=== PATIENT | male | born 1960 | race Two or more races ===

== ENCOUNTER 2017-09-08 13:07 | Emergency (ER) | payer OTHER ==
[~2017-09-08] VITALS: Ht 175.3 cm; Wt 86.2 kg
[~2017-09-08 13:07] MED LIST: METFORMIN HCL500 MG; TUSSI PRES-B L120 M1 PO; ZITHROMAX TRI-500 MG PO
[2017-09-08] MEDS ORDERED: ATORVASTATIN CA10 MG (13:39)
== END 2017-09-08 17:18 | disposition home or self-care (01) ==
LOC: ER 13:07
DX: R00.2 Palpitations (principal)

== ENCOUNTER → 2017-10-12 07:03 | Outpatient (CLI) | payer OTHER ==
[~2017-10-12 07:03] MED LIST changes: +ATORVASTATIN CA10 MG
== END | disposition home or self-care (01) ==
LOC: LAB 07:03
DX: I11.9 Hypertensive heart disease without heart failure (principal); E11.9 Type 2 diabetes mellitus without complications; E78.2 Mixed hyperlipidemia; E03.9 Hypothyroidism, unspecified; N39.0 Urinary tract infection, site not specified; C18.9 Malignant neoplasm of colon, unspecified

== ENCOUNTER 2017-10-13 07:12 | Outpatient (CLI) | payer OTHER | END 2017-10-13 08:21 | disposition home or self-care (01) | LOC: LAB 07:12 | DX: C18.9 Malignant neoplasm of colon, unspecified (principal) ==

== ENCOUNTER 2018-01-11 12:37 | Emergency (ER) | payer OTHER ==
[~2018-01-11] VITALS: Ht 175.3 cm; Wt 86.2 kg
[2018-01-11] MEDS ORDERED: VITAMIN B122500 MCG (12:47)
[2018-01-11] MEDS ORDERED: VITAMIN D31000 UNIT (12:48)
== END 2018-01-11 15:34 | disposition home or self-care (01) ==
LOC: ER 12:37
DX: R00.2 Palpitations (principal); F06.4 Anxiety disorder due to known physiological condition

== ENCOUNTER 2018-02-22 08:21 | Outpatient (CLI) | payer OTHER ==
[~2018-02-22 08:21] MED LIST changes: +VITAMIN B122500 MCG; +VITAMIN D31000 UNIT
== END 2018-02-22 14:44 | disposition home or self-care (01) ==
LOC: LAB 08:21
DX: D50.8 Other iron deficiency anemias (principal); E03.8 Other specified hypothyroidism; E78.2 Mixed hyperlipidemia; I11.9 Hypertensive heart disease without heart failure; E56.8 Deficiency of other vitamins; N39.0 Urinary tract infection, site not specified; Z12.11 Encounter for screening for malignant neoplasm of colon; R19.5 Other fecal abnormalities; E55.9 Vitamin D deficiency, unspecified; N19 Unspecified kidney failure; E11.9 Type 2 diabetes mellitus without complications; R80.9 Proteinuria, unspecified; K92.1 Melena; C18.9 Malignant neoplasm of colon, unspecified

== ENCOUNTER 2018-09-06 15:13 | Emergency (ER) | payer OTHER ==
[~2018-09-06] VITALS: Ht 175.3 cm; Wt 88.0 kg
== END 2018-09-06 18:30 | disposition home or self-care (01) ==
LOC: ER 15:13
DX: G44.209 Tension-type headache, unspecified, not intractable (principal)

== ENCOUNTER 2018-09-16 08:06 | Outpatient (CLI) | payer OTHER | END 2018-09-16 08:10 | disposition home or self-care (01) | LOC: LAB 08:06 | DX: D50.8 Other iron deficiency anemias (principal); E03.8 Other specified hypothyroidism; E78.2 Mixed hyperlipidemia; I11.9 Hypertensive heart disease without heart failure; E56.8 Deficiency of other vitamins; N39.0 Urinary tract infection, site not specified; Z12.11 Encounter for screening for malignant neoplasm of colon; E55.9 Vitamin D deficiency, unspecified; N19 Unspecified kidney failure; E11.9 Type 2 diabetes mellitus without complications; R80.8 Other proteinuria; C18.0 Malignant neoplasm of cecum; K92.1 Melena; E53.8 Deficiency of other specified B group vitamins ==

== ENCOUNTER 2018-09-17 10:39 | Outpatient (CLI) | payer OTHER | END 2018-09-17 13:01 | disposition home or self-care (01) | LOC: LAB 10:39 | DX: D50.8 Other iron deficiency anemias (principal); E03.8 Other specified hypothyroidism; E78.2 Mixed hyperlipidemia; I11.9 Hypertensive heart disease without heart failure; E56.8 Deficiency of other vitamins; N39.0 Urinary tract infection, site not specified; Z12.11 Encounter for screening for malignant neoplasm of colon; E55.9 Vitamin D deficiency, unspecified; N19 Unspecified kidney failure; E11.9 Type 2 diabetes mellitus without complications; R80.8 Other proteinuria; C18.0 Malignant neoplasm of cecum; K92.1 Melena; E53.8 Deficiency of other specified B group vitamins ==

== ENCOUNTER 2019-02-13 08:09 | Outpatient (CLI) | payer OTHER | END 2019-02-13 08:17 | disposition home or self-care (01) | LOC: LAB 08:09 | DX: D50.8 Other iron deficiency anemias (principal); E03.8 Other specified hypothyroidism; E78.2 Mixed hyperlipidemia; I11.9 Hypertensive heart disease without heart failure; E56.8 Deficiency of other vitamins; N39.0 Urinary tract infection, site not specified; Z12.11 Encounter for screening for malignant neoplasm of colon; E55.9 Vitamin D deficiency, unspecified; R80.8 Other proteinuria; C18.0 Malignant neoplasm of cecum; K92.1 Melena; E11.9 Type 2 diabetes mellitus without complications; N17.8 Other acute kidney failure ==

== ENCOUNTER → 2019-08-01 07:01 | Outpatient (CLI) | payer OTHER | END | disposition home or self-care (01) | LOC: LAB 07:01 | DX: D50.8 Other iron deficiency anemias (principal); E03.8 Other specified hypothyroidism; E78.2 Mixed hyperlipidemia; I11.9 Hypertensive heart disease without heart failure; E56.8 Deficiency of other vitamins; N39.0 Urinary tract infection, site not specified; Z12.11 Encounter for screening for malignant neoplasm of colon; E55.9 Vitamin D deficiency, unspecified; N19 Unspecified kidney failure; E11.9 Type 2 diabetes mellitus without complications; R80.8 Other proteinuria; C18.0 Malignant neoplasm of cecum; K92.1 Melena ==

== ENCOUNTER 2019-08-05 09:26 | Outpatient (CLI) | payer OTHER | END 2019-08-05 09:33 | disposition home or self-care (01) | LOC: LAB 09:26 | DX: D50.8 Other iron deficiency anemias (principal); E03.8 Other specified hypothyroidism; E78.2 Mixed hyperlipidemia; I11.9 Hypertensive heart disease without heart failure; E56.8 Deficiency of other vitamins; N39.0 Urinary tract infection, site not specified; Z12.11 Encounter for screening for malignant neoplasm of colon; E55.9 Vitamin D deficiency, unspecified; N19 Unspecified kidney failure; E11.9 Type 2 diabetes mellitus without complications; R80.8 Other proteinuria; C18.0 Malignant neoplasm of cecum; K92.1 Melena ==

== ENCOUNTER → 2019-11-17 10:44 | Outpatient (CLI) | payer OTHER | END | disposition home or self-care (01) | LOC: LAB 10:44 | DX: D50.8 Other iron deficiency anemias (principal); E03.8 Other specified hypothyroidism; E78.2 Mixed hyperlipidemia; I11.9 Hypertensive heart disease without heart failure; E56.8 Deficiency of other vitamins; N39.0 Urinary tract infection, site not specified; Z12.11 Encounter for screening for malignant neoplasm of colon; E55.9 Vitamin D deficiency, unspecified; N19 Unspecified kidney failure; E11.9 Type 2 diabetes mellitus without complications; R80.8 Other proteinuria; C18.0 Malignant neoplasm of cecum; K92.1 Melena ==

== ENCOUNTER 2020-03-11 07:21 | Outpatient (CLI) | payer OTHER | END 2020-03-11 07:40 | disposition home or self-care (01) | LOC: LAB 07:21 | PROVIDERS: ATTEND Internal Medicine Geriatric Medicine | DX: D50.8 Other iron deficiency anemias (principal); E03.8 Other specified hypothyroidism; E78.2 Mixed hyperlipidemia; I11.9 Hypertensive heart disease without heart failure; E56.8 Deficiency of other vitamins; N39.0 Urinary tract infection, site not specified; Z12.11 Encounter for screening for malignant neoplasm of colon; E55.9 Vitamin D deficiency, unspecified; N19 Unspecified kidney failure; E11.9 Type 2 diabetes mellitus without complications; R80.8 Other proteinuria; C18.0 Malignant neoplasm of cecum; K92.1 Melena ==

== ENCOUNTER 2020-03-12 08:30 | Outpatient (CLI) | payer OTHER | END 2020-03-12 08:34 | disposition home or self-care (01) | LOC: LAB 08:30 | PROVIDERS: ATTEND Internal Medicine Geriatric Medicine | DX: D50.8 Other iron deficiency anemias (principal); E03.8 Other specified hypothyroidism; E78.2 Mixed hyperlipidemia; I11.9 Hypertensive heart disease without heart failure; E56.8 Deficiency of other vitamins; N39.0 Urinary tract infection, site not specified; Z12.11 Encounter for screening for malignant neoplasm of colon; E55.9 Vitamin D deficiency, unspecified; N19 Unspecified kidney failure; E11.9 Type 2 diabetes mellitus without complications; R80.8 Other proteinuria; C18.0 Malignant neoplasm of cecum; K92.1 Melena ==

== ENCOUNTER 2020-10-27 10:02 | Outpatient (CLI) | payer OTHER | END 2020-10-27 10:09 | disposition home or self-care (01) | LOC: LAB 10:02 | PROVIDERS: ATTEND Internal Medicine Geriatric Medicine | DX: D50.8 Other iron deficiency anemias (principal); E03.8 Other specified hypothyroidism; E78.2 Mixed hyperlipidemia; I11.9 Hypertensive heart disease without heart failure; E56.8 Deficiency of other vitamins; N39.0 Urinary tract infection, site not specified; Z12.11 Encounter for screening for malignant neoplasm of colon; R19.5 Other fecal abnormalities; E55.9 Vitamin D deficiency, unspecified; N19 Unspecified kidney failure; E11.9 Type 2 diabetes mellitus without complications; R80.8 Other proteinuria; C18.8 Malignant neoplasm of overlapping sites of colon; K92.1 Melena ==

== ENCOUNTER → 2021-04-07 09:41 | Outpatient (CLI) | payer OTHER | END | disposition home or self-care (01) | LOC: LAB 09:41 | PROVIDERS: ATTEND Internal Medicine Geriatric Medicine | DX: D50.8 Other iron deficiency anemias (principal); E03.8 Other specified hypothyroidism; E78.2 Mixed hyperlipidemia; I11.9 Hypertensive heart disease without heart failure; E56.8 Deficiency of other vitamins; N39.0 Urinary tract infection, site not specified; Z12.11 Encounter for screening for malignant neoplasm of colon; R19.5 Other fecal abnormalities; E55.9 Vitamin D deficiency, unspecified; N19 Unspecified kidney failure; E11.9 Type 2 diabetes mellitus without complications ==

== ENCOUNTER 2021-08-07 13:11 | Emergency (ER) | payer OTHER ==
[~2021-08-07] VITALS: Ht 175.3 cm; Wt 86.2 kg
[2021-08-07] MEDS ORDERED: ALTACE1.25 MG PO (13:21)
[2021-08-07] MEDS ORDERED: HYDROXYZINE HCL50 MG PO (15:23)
== END 2021-08-07 16:01 | disposition home or self-care (01) ==
LOC: ER 13:11
DX: F41.8 Other specified anxiety disorders (principal); E11.9 Type 2 diabetes mellitus without complications; Z79.84 Long term (current) use of oral hypoglycemic drugs; I10 Essential (primary) hypertension

== ENCOUNTER → 2021-08-24 11:15 | Outpatient (CLI) | payer OTHER ==
[~2021-08-24 11:15] MED LIST changes: +ALTACE1.25 MG PO; +HYDROXYZINE HCL50 MG PO
== END | disposition home or self-care (01) ==
LOC: LAB 11:15
PROVIDERS: ATTEND Internal Medicine Geriatric Medicine
DX: D50.9 Iron deficiency anemia, unspecified (principal); E03.9 Hypothyroidism, unspecified; E78.2 Mixed hyperlipidemia; I11.9 Hypertensive heart disease without heart failure; E56.8 Deficiency of other vitamins; N39.0 Urinary tract infection, site not specified; Z12.11 Encounter for screening for malignant neoplasm of colon; R19.5 Other fecal abnormalities; E55.9 Vitamin D deficiency, unspecified; E11.9 Type 2 diabetes mellitus without complications

== ENCOUNTER 2021-09-07 08:00 | Outpatient (CLI) | payer OTHER | END 2021-09-07 08:30 | disposition home or self-care (01) | LOC: PPH VACUNA 08:00 | PROVIDERS: ATTEND Emergency Medicine Pediatric Emergency Medicine | DX: Z23 Encounter for immunization (principal) ==

== ENCOUNTER 2021-10-20 08:13 | Outpatient (CLI) | payer OTHER | END 2021-10-20 09:24 | disposition home or self-care (01) | LOC: SONOGRAMA 08:13 | PROVIDERS: ATTEND Internal Medicine Gastroenterology | DX: R74.01 Elevation of levels of liver transaminase levels (principal) ==

== ENCOUNTER 2021-11-29 10:21 | Outpatient (CLI) | payer OTHER | END 2021-11-29 10:30 | disposition home or self-care (01) | LOC: LAB 10:21 | PROVIDERS: ATTEND Internal Medicine Gastroenterology | DX: K57.31 Diverticulosis of large intestine without perforation or abscess with bleeding (principal); R74.01 Elevation of levels of liver transaminase levels; Z86.010 Personal history of colon polyps ==

== ENCOUNTER 2022-01-04 07:16 | Outpatient (CLI) | payer OTHER | END 2022-01-04 07:17 | disposition home or self-care (01) | LOC: MRI 07:16 | PROVIDERS: ATTEND Orthopaedic Surgery | DX: S83.212A Bucket-handle tear of medial meniscus, current injury, left knee, initial encounter (principal) | CPT/HCPCS: 73718 ==

== ENCOUNTER 2022-01-19 07:15 | Outpatient (CLI) | payer OTHER | END 2022-01-19 15:09 | disposition home or self-care (01) | LOC: LAB 07:15 | PROVIDERS: ATTEND Internal Medicine Geriatric Medicine | DX: D50.9 Iron deficiency anemia, unspecified (principal); E03.9 Hypothyroidism, unspecified; E78.2 Mixed hyperlipidemia; I11.9 Hypertensive heart disease without heart failure; E56.8 Deficiency of other vitamins; N39.0 Urinary tract infection, site not specified; Z12.11 Encounter for screening for malignant neoplasm of colon; R19.5 Other fecal abnormalities; E55.9 Vitamin D deficiency, unspecified; N19 Unspecified kidney failure; E11.9 Type 2 diabetes mellitus without complications ==

== ENCOUNTER → 2022-07-08 10:32 | Outpatient (CLI) | payer OTHER | END | disposition home or self-care (01) | LOC: LAB 10:32 | PROVIDERS: ATTEND Internal Medicine Gastroenterology | DX: R74.01 Elevation of levels of liver transaminase levels (principal); K57.31 Diverticulosis of large intestine without perforation or abscess with bleeding; Z86.010 Personal history of colon polyps; Z11.52 Encounter for screening for COVID-19; Z20.822 Contact with and (suspected) exposure to COVID-19; Z20.828 Contact with and (suspected) exposure to other viral communicable diseases ==

== ENCOUNTER → 2022-08-01 10:22 | Outpatient (CLI) | payer OTHER | END | disposition home or self-care (01) | LOC: LAB 10:22 | PROVIDERS: ATTEND Internal Medicine Geriatric Medicine | DX: D50.9 Iron deficiency anemia, unspecified (principal); E03.9 Hypothyroidism, unspecified; E78.2 Mixed hyperlipidemia; I11.9 Hypertensive heart disease without heart failure; E56.8 Deficiency of other vitamins; N39.0 Urinary tract infection, site not specified; Z12.11 Encounter for screening for malignant neoplasm of colon; R19.5 Other fecal abnormalities; E55.9 Vitamin D deficiency, unspecified; N19 Unspecified kidney failure; E11.9 Type 2 diabetes mellitus without complications ==

== ENCOUNTER → 2022-09-14 09:32 | Outpatient (CLI) | payer OTHER | END | disposition home or self-care (01) | LOC: LAB 09:32 | PROVIDERS: ATTEND Specialist | DX: N39.0 Urinary tract infection, site not specified (principal); N20.0 Calculus of kidney; N40.0 Benign prostatic hyperplasia without lower urinary tract symptoms ==

== ENCOUNTER 2022-11-17 07:02 | Outpatient (CLI) | payer OTHER | END 2022-11-17 07:03 | disposition home or self-care (01) | LOC: LAB 07:02 | PROVIDERS: ATTEND Internal Medicine Geriatric Medicine | DX: R74.01 Elevation of levels of liver transaminase levels (principal) ==

== ENCOUNTER → 2022-11-17 | Outpatient (CLI) | payer OTHER | END | disposition home or self-care (01) | LOC: SONOGRAMA 07:36 | PROVIDERS: ATTEND Internal Medicine Geriatric Medicine | DX: R74.01 Elevation of levels of liver transaminase levels (principal) ==

== ENCOUNTER 2023-01-08 07:16 | Outpatient (CLI) | payer OTHER | END 2023-01-08 07:18 | disposition home or self-care (01) | LOC: LAB 07:16 | PROVIDERS: ATTEND Internal Medicine Geriatric Medicine | DX: D50.9 Iron deficiency anemia, unspecified (principal); E03.9 Hypothyroidism, unspecified; E78.2 Mixed hyperlipidemia; I11.9 Hypertensive heart disease without heart failure; E56.8 Deficiency of other vitamins; N39.0 Urinary tract infection, site not specified; Z12.11 Encounter for screening for malignant neoplasm of colon; R19.5 Other fecal abnormalities; E55.9 Vitamin D deficiency, unspecified; N19 Unspecified kidney failure; E11.9 Type 2 diabetes mellitus without complications ==

== ENCOUNTER → 2023-04-30 10:48 | Outpatient (CLI) | payer OTHER ==
[2023-04-30 12:55] LABS: HEMATOCRIT 43.1 % (39.0-48.0); HEMOGLOBIN 14.9 g/dL (13-16.00); MEAN CELL VOLUME 95.8 fL (80.0-100.00); MEAN CORPUSCULAR HGB CONC 34.4 g/dl (32.0-36.0); PLATELET COUNT 257 K/uL (150-450)
[2023-04-30 13:50] LABS: ALBUMIN 3.6 gm/dL (3.4-5.0); BILIRUBIN TOTAL 0.72 mg/dL (0.3-1.2); CHOL HDL RATIO 2.2 (0-5.0); CREATININE SERUM 0.8 mg/dL (0.70-1.30); GFR 97.95; GLOBULINA 4.1 G/DL (2.4-3.5); POTASSIUM 4.77 mEq/L (3.5-5.1); TOTAL PROTEIN 7.7 gm/dL (6.4-8.2)
== END | disposition home or self-care (01) ==
LOC: LAB 10:48
PROVIDERS: ATTEND Internal Medicine Cardiovascular Disease
DX: I11.9 Hypertensive heart disease without heart failure (principal); E11.9 Type 2 diabetes mellitus without complications; E78.2 Mixed hyperlipidemia

== ENCOUNTER → 2023-07-19 09:10 | Outpatient (CLI) | payer OTHER ==
[2023-07-19 10:11] LABS: HEMATOCRIT 42.3 % (39.0-48.0); HEMOGLOBIN 14.5 g/dL (13-16.00); MEAN CELL VOLUME 95.2 fL (80.0-100.00); MEAN CORPUSCULAR HEMOGLOBIN 32.6 pg (27.00-32.0); MEAN CORPUSCULAR HGB CONC 34.2 g/dl (32.0-36.0); PLATELET COUNT 267 K/uL (150-450); RED BLOOD COUNT 4.44 M/uL (4.00-6.00); RED CELL DISTRIBUTION WIDTH 13.4 % (11.5-14.5)
[2023-07-19 10:26] LABS: PH,URINE 5.5 (5.0-8.0); URINE APPEARANCE Clear; URINE BILIRRUBIN Negative (NEGATIVE); URINE BLOOD Negative; URINE COLOR Yellow; URINE GLUCOSE Negative (NEGATIVE); URINE LEUKOCYTE Negative; URINE NITRATE Negative; URINE PROTEIN Negative (NEGATIVE); URINE UROBILINOGEN 0.2 E.U./dl
[2023-07-19 10:32] LABS: URINE RBC 3.3 uL (0.0-20.8); URINE WBC 1.8 uL (0.0-23.2)
[2023-07-19 10:37] LABS: URINE EPITHELIAL CELLS 0.6 uL (0.0-38.8)
[2023-07-19 10:56] LABS: ALBUMIN 3.7 gm/dL (3.4-5.0); BILIRUBIN TOTAL 0.5 mg/dL (0.3-1.2); CALCIUM 9.3 mg/dL (8.5-10.1); CHOL HDL RATIO 2.3 (0-5.0); CREATININE SERUM 0.82 mg/dL (0.70-1.30); GFR 95.2; GLOBULINA 3.9 G/DL (2.4-3.5); POTASSIUM 5.35 mEq/L (3.5-5.1); TOTAL PROTEIN 7.6 gm/dL (6.4-8.2); TSH 1.05 uIU/mL (0.358-3.74)
== END | disposition home or self-care (01) ==
LOC: LAB 09:10
PROVIDERS: ATTEND Internal Medicine Geriatric Medicine
DX: D50.9 Iron deficiency anemia, unspecified (principal); E03.9 Hypothyroidism, unspecified; E78.2 Mixed hyperlipidemia; I11.9 Hypertensive heart disease without heart failure; E56.8 Deficiency of other vitamins; N39.0 Urinary tract infection, site not specified; Z12.11 Encounter for screening for malignant neoplasm of colon; R19.5 Other fecal abnormalities; E55.9 Vitamin D deficiency, unspecified; N19 Unspecified kidney failure; E11.9 Type 2 diabetes mellitus without complications

== ENCOUNTER 2023-09-07 10:56 | Emergency (ER) | payer OTHER ==
[~2023-09-07] VITALS: Ht 175.3 cm; Wt 89.8 kg
[2023-09-07] MEDS ORDERED: levoFLOXacin IN DEXTROSE 5 % 5 MG/ML PIGGYBAG IV STA (12:43)
[2023-09-07] MEDS ORDERED: KETOROLAC TROMETHAMINE 15 MG VIAL IV STA (12:43)
== END 2023-09-07 14:46 | disposition home or self-care (01) ==
LOC: ER 10:57
DX: S80.211A Abrasion, right knee, initial encounter (principal); X58.XXXA Exposure to other specified factors, initial encounter; Y93.89 Activity, other specified; Y92.89 Other specified places as the place of occurrence of the external cause; Y99.8 Other external cause status; L03.90 Cellulitis, unspecified; L08.9 Local infection of the skin and subcutaneous tissue, unspecified

== ENCOUNTER 2023-10-16 09:03 | Outpatient (CLI) | payer OTHER ==
[2023-10-16 09:43] LABS: HEMATOCRIT 43.7 % (39.0-48.0); MEAN CELL VOLUME 96.5 fL (80.0-100.00); MEAN CORPUSCULAR HGB CONC 34.2 g/dl (32.0-36.0); PLATELET COUNT 226 K/uL (150-450); RED BLOOD COUNT 4.53 M/uL (4.00-6.00); RED CELL DISTRIBUTION WIDTH 12.9 % (11.5-14.5)
[2023-10-16 09:50] LABS: PH,URINE 5.5 (5.0-8.0); URINE APPEARANCE Clear; URINE BILIRRUBIN Negative (NEGATIVE); URINE BLOOD Trace; URINE COLOR Yellow; URINE GLUCOSE Negative (NEGATIVE); URINE LEUKOCYTE Negative; URINE NITRATE Negative; URINE PROTEIN Negative (NEGATIVE); URINE UROBILINOGEN 0.2 E.U./dl
[2023-10-16 09:54] LABS: URINE RBC 7.7 uL (0.0-20.8)
[2023-10-16 10:06] LABS: URINE EPITHELIAL CELLS 0.6 uL (0.0-38.8); URINE WBC 1.2 uL (0.0-23.2)
[2023-10-16 10:19] LABS: ALBUMIN 3.8 gm/dL (3.4-5.0); BILIRUBIN TOTAL 0.66 mg/dL (0.3-1.2); CALCIUM 9.4 mg/dL (8.5-10.1); CHOL HDL RATIO 2.3 (0-5.0); CREATININE SERUM 0.85 mg/dL (0.70-1.30); GFR 91.33; POTASSIUM 5.37 mEq/L (3.5-5.1); TOTAL PROTEIN 7.8 gm/dL (6.4-8.2); TSH 1.46 uIU/mL (0.358-3.74)
== END 2023-10-16 09:12 | disposition home or self-care (01) ==
LOC: LAB 09:03
PROVIDERS: ATTEND Internal Medicine Cardiovascular Disease
DX: R00.2 Palpitations (principal); I11.9 Hypertensive heart disease without heart failure; E11.9 Type 2 diabetes mellitus without complications; E78.2 Mixed hyperlipidemia

== ENCOUNTER 2024-01-31 11:44 | Outpatient (CLI) | payer OTHER ==
[2024-01-31 12:29] LABS: HEMATOCRIT 43.9 % (39.0-48.0); HEMOGLOBIN 14.9 g/dL (13-16.00); MEAN CELL VOLUME 96.6 fL (80.0-100.00); MEAN CORPUSCULAR HEMOGLOBIN 32.8 pg (27.00-32.0); PLATELET COUNT 231 K/uL (150-450); RED BLOOD COUNT 4.54 M/uL (4.00-6.00); RED CELL DISTRIBUTION WIDTH 13.2 % (11.5-14.5)
[2024-01-31 12:35] LABS: URINE APPEARANCE Clear; URINE BILIRRUBIN Negative (NEGATIVE); URINE BLOOD Trace; URINE COLOR Yellow; URINE GLUCOSE Negative (NEGATIVE); URINE KETONE Negative (NEGATIVE); URINE LEUKOCYTE Negative; URINE NITRATE Negative; URINE PROTEIN Negative (NEGATIVE); URINE UROBILINOGEN 0.2 E.U./dl
[2024-01-31 12:36] LABS: URINE BACTERIA 6.2 uL (0.0-1933); URINE RBC 5.8 uL (0.0-20.8); URINE WBC 2.9 uL (0.0-23.2)
[2024-01-31 13:30] LABS: ALBUMIN 3.9 gm/dL (3.4-5.0); BILIRUBIN TOTAL 0.55 mg/dL (0.3-1.2); CALCIUM 9.2 mg/dL (8.5-10.1); CHOL HDL RATIO 2.4 (0-5.0); CREATININE SERUM 0.86 mg/dL (0.70-1.30); GFR 90.11; POTASSIUM 4.67 mEq/L (3.5-5.1); TOTAL PROTEIN 7.9 gm/dL (6.4-8.2); TSH 1.26 uIU/mL (0.358-3.74)
[2024-02-01 13:28] LABS: ob POSITIVE (NEGATIVE)
== END 2024-01-31 11:45 | disposition home or self-care (01) ==
LOC: LAB 11:44
PROVIDERS: ATTEND Internal Medicine Geriatric Medicine
DX: D50.9 Iron deficiency anemia, unspecified (principal); E03.9 Hypothyroidism, unspecified; E78.2 Mixed hyperlipidemia; I11.9 Hypertensive heart disease without heart failure; E56.8 Deficiency of other vitamins; N39.0 Urinary tract infection, site not specified; Z12.11 Encounter for screening for malignant neoplasm of colon; R19.5 Other fecal abnormalities; E55.9 Vitamin D deficiency, unspecified; N19 Unspecified kidney failure; E11.9 Type 2 diabetes mellitus without complications

== ENCOUNTER 2024-02-25 11:47 | Emergency (ER) | payer OTHER ==
[~2024-02-25] VITALS: Ht 175.3 cm; Wt 86.2 kg
== END 2024-02-25 16:46 | disposition home or self-care (01) ==
LOC: ER 11:47
DX: B34.9 Viral infection, unspecified (principal); E11.9 Type 2 diabetes mellitus without complications; Z79.84 Long term (current) use of oral hypoglycemic drugs; I10 Essential (primary) hypertension; G47.30 Sleep apnea, unspecified; Z20.822 Contact with and (suspected) exposure to COVID-19

== ENCOUNTER 2024-03-13 08:55 | Outpatient (CLI) | payer OTHER ==
[2024-03-13 10:11] LABS: PH,URINE 5.5 (5.0-8.0); URINE APPEARANCE Clear; URINE BILIRRUBIN Negative (NEGATIVE); URINE BLOOD Negative; URINE COLOR Yellow; URINE GLUCOSE Negative (NEGATIVE); URINE KETONE Negative (NEGATIVE); URINE LEUKOCYTE Negative; URINE NITRATE Negative; URINE PROTEIN Negative (NEGATIVE); URINE UROBILINOGEN 0.2 E.U./dl
[2024-03-13 10:13] LABS: URINE RBC 2.9 uL (0.0-20.8)
[2024-03-13 10:16] LABS: URINE BACTERIA 3.7 uL (0.0-1933); URINE CAST 0.15 uL (0.0-1.40); URINE EPITHELIAL CELLS 0.6 uL (0.0-38.8); URINE WBC 0.9 uL (0.0-23.2)
[2024-03-13 10:20] LABS: HEMATOCRIT 39.1 % (39.0-48.0); HEMOGLOBIN 13.6 g/dL (13-16.00); MEAN CELL VOLUME 93.6 fL (80.0-100.00); MEAN CORPUSCULAR HEMOGLOBIN 32.5 pg (27.00-32.0); MEAN CORPUSCULAR HGB CONC 34.7 g/dl (32.0-36.0); PLATELET COUNT 288 K/uL (150-450); RED BLOOD COUNT 4.18 M/uL (4.00-6.00); RED CELL DISTRIBUTION WIDTH 13.3 % (11.5-14.5)
[2024-03-13 11:22] LABS: ALBUMIN 3.5 gm/dL (3.4-5.0); BILIRUBIN TOTAL 0.52 mg/dL (0.3-1.2); CALCIUM 8.8 mg/dL (8.5-10.1); CHOL HDL RATIO 2.3 (0-5.0); CREATININE SERUM 0.73 mg/dL (0.70-1.30); GFR 108.87; GLOBULINA 3.9 G/DL (2.4-3.5); POTASSIUM 5.17 mEq/L (3.5-5.1); TOTAL PROTEIN 7.4 gm/dL (6.4-8.2); TSH 1.53 uIU/mL (0.358-3.74)
== END 2024-03-13 09:07 | disposition home or self-care (01) ==
LOC: LAB 08:55
PROVIDERS: ATTEND Internal Medicine Cardiovascular Disease
DX: R00.2 Palpitations (principal); I11.9 Hypertensive heart disease without heart failure; E11.9 Type 2 diabetes mellitus without complications; E78.2 Mixed hyperlipidemia

== ENCOUNTER 2024-04-11 08:39 | Outpatient (CLI) | payer OTHER ==
[2024-04-11 09:54] LABS: HEMATOCRIT 40.9 % (39.0-48.0); HEMOGLOBIN 13.7 g/dL (13-16.00); MEAN CELL VOLUME 96.9 fL (80.0-100.00); MEAN CORPUSCULAR HEMOGLOBIN 32.5 pg (27.00-32.0); MEAN CORPUSCULAR HGB CONC 33.6 g/dl (32.0-36.0); PLATELET COUNT 236 K/uL (150-450); RED BLOOD COUNT 4.22 M/uL (4.00-6.00); RED CELL DISTRIBUTION WIDTH 13.6 % (11.5-14.5)
[2024-04-11 10:01] LABS: URINE APPEARANCE Clear; URINE BILIRRUBIN Negative (NEGATIVE); URINE BLOOD Negative; URINE COLOR Yellow; URINE GLUCOSE Negative (NEGATIVE); URINE KETONE Negative (NEGATIVE); URINE LEUKOCYTE Negative; URINE NITRATE Negative; URINE PROTEIN Negative (NEGATIVE); URINE UROBILINOGEN 0.2 E.U./dl
[2024-04-11 10:05] LABS: URINE RBC 2.1 uL (0.0-20.8)
[2024-04-11 10:13] LABS: URINE BACTERIA 0 uL (0.0-1933); URINE CAST 0.15 uL (0.0-1.40); URINE EPITHELIAL CELLS 1.2 uL (0.0-38.8)
[2024-04-11 10:25] LABS: INR 0.96; PARTIAL THROMBOPLASTIN TIME 26.2 SECONDS (22.0-34.0); PROTHROMBIN TIME 10.5 SECONDS (9.0-11.5)
[2024-04-11 11:33] LABS: CALCIUM 8.8 mg/dL (8.5-10.1); CREATININE SERUM 0.74 mg/dL (0.70-1.30); GFR 106.82; POTASSIUM 4.8 mEq/L (3.5-5.1)
== END 2024-04-11 08:48 | disposition home or self-care (01) ==
LOC: LAB 08:39
DX: R19.5 Other fecal abnormalities (principal); K57.30 Diverticulosis of large intestine without perforation or abscess without bleeding; I10 Essential (primary) hypertension; R10.9 Unspecified abdominal pain

== ENCOUNTER 2024-05-01 07:27 | Day surgery (SDC) | payer OTHER ==
[2024-05-01] MEDS ORDERED: TYLENOL ARTHRI650 MG PO (09:30)
[2024-05-01] MEDS ORDERED: TRAMADOL HCL50 MG PO (09:30)
[2024-05-01] MEDS ORDERED: MIRALAX17 GM PO (09:30)
[2024-05-01] MEDS ORDERED: KETO10TA2 PO (09:30)
[2024-05-01] MEDS ORDERED: CEFAZOLIN SODIUM 1,000 MG VIAL IV ONE (11:45)
[2024-05-01] MEDS ORDERED: BUPIVACAINE HCL 30 ML VIAL IV ONE (11:45)
[2024-05-01] MEDS ORDERED: MORPHINE SULFATE 4 MG/ML VIAL IV ONE ×2 (12:30→13:00)
== END 2024-05-01 14:35 | disposition home or self-care (01) ==
LOC: CIR.AMB 07:27
PROVIDERS: ATTEND Surgery
DX: K40.90 Unilateral inguinal hernia, without obstruction or gangrene, not specified as recurrent (principal)
CPT/HCPCS: 49650; C1781

== ENCOUNTER → 2024-08-07 08:12 | Outpatient (CLI) | payer OTHER ==
[~2024-08-07 08:12] MED LIST changes: +KETO10TA2 PO; +MIRALAX17 GM PO; +TRAMADOL HCL50 MG PO; +TYLENOL ARTHRI650 MG PO
[2024-08-07 09:06] LABS: HEMATOCRIT 43.7 % (39.0-48.0); HEMOGLOBIN 14.4 g/dL (13-16.00); MEAN CELL VOLUME 96.7 fL (80.0-100.00); MEAN CORPUSCULAR HGB CONC 33.1 g/dl (32.0-36.0); PLATELET COUNT 237 K/uL (150-450); RED BLOOD COUNT 4.52 M/uL (4.00-6.00); RED CELL DISTRIBUTION WIDTH 12.9 % (11.5-14.5)
[2024-08-07 09:07] LABS: URINE APPEARANCE Clear; URINE BILIRRUBIN Negative (NEGATIVE); URINE BLOOD Negative; URINE COLOR Yellow; URINE GLUCOSE Negative (NEGATIVE); URINE KETONE Negative (NEGATIVE); URINE LEUKOCYTE Negative; URINE NITRATE Negative; URINE PROTEIN Negative (NEGATIVE); URINE UROBILINOGEN 0.2 E.U./dl
[2024-08-07 09:08] LABS: URINE BACTERIA 9.7 uL (0.0-1933); URINE RBC 4.8 uL (0.0-20.8); URINE WBC 2.6 uL (0.0-23.2)
[2024-08-07 09:16] LABS: URINE EPITHELIAL CELLS 0.4 uL (0.0-38.8)
[2024-08-07 10:00] LABS: ALBUMIN 3.6 gm/dL (3.4-5.0); BILIRUBIN TOTAL 0.53 mg/dL (0.3-1.2); CALCIUM 9.5 mg/dL (8.5-10.1); CREATININE SERUM 0.73 mg/dL (0.70-1.30); GFR 108.52; GLOBULINA 3.8 G/DL (2.4-3.5); POTASSIUM 4.91 mEq/L (3.5-5.1); TOTAL PROTEIN 7.4 gm/dL (6.4-8.2)
[2024-08-07 10:18] LABS: TSH 2.7 uIU/mL (0.358-3.74)
== END | disposition home or self-care (01) ==
LOC: LAB 08:12
PROVIDERS: ATTEND Internal Medicine Geriatric Medicine
DX: D50.9 Iron deficiency anemia, unspecified (principal); E03.9 Hypothyroidism, unspecified; E78.2 Mixed hyperlipidemia; I11.9 Hypertensive heart disease without heart failure; E56.8 Deficiency of other vitamins; N39.0 Urinary tract infection, site not specified; Z12.11 Encounter for screening for malignant neoplasm of colon; R19.5 Other fecal abnormalities; E55.9 Vitamin D deficiency, unspecified; N19 Unspecified kidney failure; E11.9 Type 2 diabetes mellitus without complications

== ENCOUNTER → 2024-11-07 09:52 | Outpatient (CLI) | payer OTHER ==
[2024-11-07 10:49] LABS: BASO % 0.6 % (0.1-1.2); EOS # 0.07 (0.04-0.54); EOS % 1.5 % (0.7-7.0); HEMATOCRIT 39.7 % (40.1-51.0); HEMOGLOBIN 13.7 g/dL (13.7-17.5); LYMPH # 1.32 (1.18-3.74); LYMPH % 28.1 % (19.3-53.1); MEAN CORPUSCULAR HEMOGLOBIN 31.9 pg (25.6-32.2); MONO # 0.54 (0.24-0.82); MONO % 11.5 % (4.7-12.5); NEUT # 2.73 (1.56-6.13); NEUT % 58.1 % (34.0-71.1); PLATELET COUNT 250 K/uL (163-369); RED BLOOD COUNT 4.29 M/uL (4.63-6.08); RED CELL DISTRIBUTION WIDTH 12.4 % (11.6-14.4)
[2024-11-07 10:59] LABS: URINE APPEARANCE Clear; URINE BILIRRUBIN Negative (NEGATIVE); URINE BLOOD Negative; URINE COLOR Yellow; URINE GLUCOSE Negative (NEGATIVE); URINE KETONE Negative (NEGATIVE); URINE LEUKOCYTE Negative; URINE NITRATE Negative; URINE PROTEIN Negative (NEGATIVE); URINE UROBILINOGEN 0.2 E.U./dl
[2024-11-07 11:04] LABS: URINE BACTERIA 6.1 uL (0.0-1933); URINE WBC 1.8 uL (0.0-23.2)
[2024-11-07 11:06] LABS: URINE EPITHELIAL CELLS 0.1 uL (0.0-38.8)
[2024-11-07 11:58] LABS: ALBUMIN 3.6 gm/dL (3.4-5.0); BILIRUBIN TOTAL 0.49 mg/dL (0.3-1.2); CALCIUM 8.8 mg/dL (8.5-10.1); CHOL HDL RATIO 2.2 (0-5.0); CREATININE SERUM 0.72 mg/dL (0.70-1.30); GFR 110.26; GLOBULINA 3.7 G/DL (2.4-3.5); POTASSIUM 4.66 mEq/L (3.5-5.1); TOTAL PROTEIN 7.3 gm/dL (6.4-8.2); TSH 1.62 uIU/mL (0.358-3.74)
== END | disposition home or self-care (01) ==
LOC: LAB 09:52
PROVIDERS: ATTEND Internal Medicine Cardiovascular Disease
DX: R00.2 Palpitations (principal); I11.9 Hypertensive heart disease without heart failure; E11.9 Type 2 diabetes mellitus without complications; E78.2 Mixed hyperlipidemia

== ENCOUNTER 2024-12-17 09:21 | Outpatient (CLI) | payer OTHER ==
[2024-12-17 09:59] LABS: EOS # 0.08 (0.04-0.54); EOS % 1.6 % (0.7-7.0); HEMATOCRIT 41.3 % (40.1-51.0); HEMOGLOBIN 13.9 g/dL (13.7-17.5); LYMPH # 1.25 (1.18-3.74); LYMPH % 24.5 % (19.3-53.1); MEAN CORPUSCULAR HEMOGLOBIN 31.7 pg (25.6-32.2); MONO % 11.8 % (4.7-12.5); NEUT # 3.11 (1.56-6.13); NEUT % 60.9 % (34.0-71.1); PLATELET COUNT 230 K/uL (163-369); RED BLOOD COUNT 4.39 M/uL (4.63-6.08); RED CELL DISTRIBUTION WIDTH 12.4 % (11.6-14.4)
[2024-12-17 10:53] LABS: URINE APPEARANCE Clear; URINE BILIRRUBIN Negative (NEGATIVE); URINE BLOOD Negative; URINE COLOR Yellow; URINE GLUCOSE Negative (NEGATIVE); URINE KETONE Negative (NEGATIVE); URINE LEUKOCYTE Negative; URINE NITRATE Negative; URINE PROTEIN Negative (NEGATIVE); URINE UROBILINOGEN 0.2 E.U./dl
[2024-12-17 10:57] LABS: URINE BACTERIA 12.2 uL (0.0-1933); URINE WBC 2.2 uL (0.0-23.2)
[2024-12-17 11:00] LABS: ALBUMIN 3.5 gm/dL (3.4-5.0); BILIRUBIN TOTAL 0.49 mg/dL (0.3-1.2); CALCIUM 8.9 mg/dL (8.5-10.1); CHOL HDL RATIO 2.3 (0-5.0); CREATININE SERUM 0.72 mg/dL (0.70-1.30); GFR 110.26; GLOBULINA 3.8 G/DL (2.4-3.5); POTASSIUM 4.15 mEq/L (3.5-5.1); TOTAL PROTEIN 7.3 gm/dL (6.4-8.2); TSH 2.38 uIU/mL (0.358-3.74)
[2024-12-17 11:09] LABS: URINE EPITHELIAL CELLS 0.4 uL (0.0-38.8)
[2024-12-17 11:10] LABS: URINE CAST 0.58 uL (0.0-1.40)
== END 2024-12-17 09:35 | disposition home or self-care (01) ==
LOC: LAB 09:21
PROVIDERS: ATTEND Internal Medicine Geriatric Medicine
DX: D50.9 Iron deficiency anemia, unspecified (principal); E03.9 Hypothyroidism, unspecified; E78.2 Mixed hyperlipidemia; I11.9 Hypertensive heart disease without heart failure; E56.8 Deficiency of other vitamins; N39.0 Urinary tract infection, site not specified; Z12.11 Encounter for screening for malignant neoplasm of colon; R19.5 Other fecal abnormalities; E55.9 Vitamin D deficiency, unspecified; N19 Unspecified kidney failure; E11.9 Type 2 diabetes mellitus without complications